=== PATIENT | female | born 1955 | race Native Hawaiian/Other Pacific Islander ===

== ENCOUNTER 2018-07-04 17:34 | Emergency (ER) | payer BC | END 2018-07-04 18:10 | disposition home or self-care (01) | LOC: ED 17:34 | DX: M79.672 Pain in left foot (principal) ==

== ENCOUNTER 2019-06-08 10:52 | Outpatient (CLI) | payer OTHER | END 2019-06-08 22:38 | disposition home or self-care (01) | LOC: RAD 10:52 | DX: R05 Cough (principal) ==

== ENCOUNTER 2020-05-11 11:39 | Outpatient (CLI) | payer OTHER | END 2020-05-11 20:32 | disposition home or self-care (01) | LOC: RAD 11:39 | DX: R05 Cough (principal) ==

== ENCOUNTER 2020-06-30 13:24 | Outpatient (CLI) | payer OTHER | END 2020-06-30 20:10 | disposition home or self-care (01) | LOC: US 13:24 | DX: R09.89 Other specified symptoms and signs involving the circulatory and respiratory systems (principal) ==

== ENCOUNTER 2020-07-28 11:11 | Outpatient (CLI) | payer OTHER | END 2020-07-28 23:15 | disposition home or self-care (01) | LOC: US 11:11 | DX: T81.89XA Other complications of procedures, not elsewhere classified, initial encounter (principal) ==

== ENCOUNTER 2022-06-02 17:19 | Emergency (ER) | payer OTHER ==
[~2022-06-02] VITALS: Ht 167.6 cm; Wt 50.3 kg
[2022-06-02 17:44] LABS: PLATELET COUNT 298 K/uL (152-353)
[2022-06-02 18:09] LABS: POTASSIUM 4.3 mmol/L (3.6-5.2)
[2022-06-02 19:35] VITALS: BP 160/68; TEMP 97.9
== END 2022-06-02 19:35 | disposition home or self-care (01) ==
LOC: ED 17:19
PROVIDERS: Emergency Medicine
DX: R07.89 Other chest pain (principal); R94.31 Abnormal electrocardiogram [ECG] [EKG]
CPT/HCPCS: 36415; 80053; 83880; 84484; 85027; 85379; 93005; 99283

== ENCOUNTER 2022-06-04 13:27 | Observation (INO) | payer OTHER ==
[~2022-06-04] VITALS: Ht 167.6 cm; Wt 49.0 kg
[2022-06-04] VITALS (8 sets, daily range): BP systolic 96–161; BP diastolic 44–71; TEMP 98–98.5; Ht 167.6 cm; Wt 49.0 kg
[2022-06-04 14:06] LABS: PLATELET COUNT 307 K/uL (152-353)
[2022-06-04 14:31] LABS: POTASSIUM 4.5 mmol/L (3.6-5.2); SODIUM 136 mmol/L (136-145)
[2022-06-04 14:42] LABS: PARTIAL THROMBOPLASTIN TIME 24.5 SECONDS (24.5-33.6)
[2022-06-04] MEDS ORDERED: COZAAR100 MG PO ×2 (19:34)
[2022-06-04] MEDS ORDERED: ACIPHEX20 MG PO ×2 (19:35)
[2022-06-04] MEDS ORDERED: NP THYROID90 MG PO ×2 (19:35)
[2022-06-04] MEDS ORDERED: VITAMIN D50000 UNIT PO ×2 (19:36)
[2022-06-04] MEDS ORDERED: LORA1TAB17 PO ×2 (19:38)
[2022-06-05] VITALS: BP 113/45; TEMP 98
[2022-06-05 04:00] VITALS: BP 117/51; TEMP 97.9
[2022-06-05 08:00] VITALS: BP 107/44; TEMP 98.6
[2022-06-05 09:30] VITALS: BP 107/44; TEMP 98.6
[2022-06-05 12:00] VITALS: BP 114/46; TEMP 98.4
== END 2022-06-05 15:00 | disposition home or self-care (01) ==
LOC: ED 13:27 → MED/SURG 16:28
PROVIDERS: ADMIT Family Medicine; ATTEND Internal Medicine
DX: I24.9 Acute ischemic heart disease, unspecified (principal); R07.89 Other chest pain; Z72.0 Tobacco use; F10.20 Alcohol dependence, uncomplicated; R14.0 Abdominal distension (gaseous); I10 Essential (primary) hypertension; K21.9 Gastro-esophageal reflux disease without esophagitis; E03.8 Other specified hypothyroidism; F41.8 Other specified anxiety disorders
CPT/HCPCS: 36415; 80053; 82150; 82550; 82805; 84439; 84443; 84484; 85027; 85610; 85730; 87635; 93005; 96372; 99220; 99283; G0378; J1650; U0003

== ENCOUNTER 2022-07-04 10:39 | Outpatient (CLI) | payer OTHER ==
[~2022-07-04 10:39] MED LIST: ACIPHEX20 MG PO; COZAAR100 MG PO; LORA1TAB17 PO; NP THYROID90 MG PO; VITAMIN D50000 UNIT PO
== END 2022-07-04 19:11 | disposition home or self-care (01) ==
LOC: US 10:39
PROVIDERS: ATTEND Nurse Practitioner Family
DX: R06.09 Other forms of dyspnea (principal); L81.9 Disorder of pigmentation, unspecified

== ENCOUNTER 2023-05-16 10:39 | Outpatient (CLI) | payer OTHER | END 2023-05-16 20:07 | disposition home or self-care (01) | LOC: MAMMO 10:39 | PROVIDERS: ATTEND Nurse Practitioner Family | DX: Z12.31 Encounter for screening mammogram for malignant neoplasm of breast (principal); R54 Age-related physical debility; N95.8 Other specified menopausal and perimenopausal disorders ==